=== PATIENT | female | born 1975 | race Caucasian/White ===

== ENCOUNTER → 2023-11-25 08:14 | Outpatient (REF) | payer OTHER, SELFPAY | LOC: WDC 08:14 | PROVIDERS: ATTENDING PHYSICIAN Surgery; FAMILY PHYSICIAN Student in an Organized Health Care Education/Training Program | DX: N64.4 Mastodynia (principal) | CPT/HCPCS: 76642 ==

== ENCOUNTER → 2024-02-17 06:19 | Day surgery (SDC) | payer OTHER, SELFPAY | LOC: GI 06:19 | PROVIDERS: ATTENDING PHYSICIAN Internal Medicine Gastroenterology | DX: Z12.11 Encounter for screening for malignant neoplasm of colon (principal); K57.30 Diverticulosis of large intestine without perforation or abscess without bleeding | CPT/HCPCS: G0121 ==

== ENCOUNTER → 2024-05-30 14:10 | Outpatient (REF) | payer OTHER, SELFPAY | LOC: HWWDC 14:10 | PROVIDERS: ATTENDING PHYSICIAN Obstetrics & Gynecology; FAMILY PHYSICIAN Family Medicine | DX: Z12.31 Encounter for screening mammogram for malignant neoplasm of breast (principal) | CPT/HCPCS: 77063; 77067 ==

== ENCOUNTER → 2024-06-22 07:49 | Outpatient (REF) | payer OTHER, SELFPAY ==
[2024-06-22 10:26] LABS: ALT (SGPT) 40 U/L (0-35); AST (SGOT) 35 U/L (14-36); Albumin 4.4 g/dl (3.5-5.0); Alkaline Phosphatase 94 U/L (38-126); Direct Bilirubin 0.2 mg/dl (0.0-0.4); Total Bilirubin 0.7 mg/dl (0.2-1.3); Total Protein 7.2 g/dl (6.3-8.2)
== END ==
LOC: HWLAB 07:49
PROVIDERS: ATTENDING PHYSICIAN Internal Medicine Gastroenterology; FAMILY PHYSICIAN Student in an Organized Health Care Education/Training Program
DX: K76.0 Fatty (change of) liver, not elsewhere classified (principal)
CPT/HCPCS: 36415; 80076

== ENCOUNTER → 2024-07-10 07:14 | Outpatient (REF) | payer OTHER, SELFPAY ==
[2024-07-10 10:45] LABS: Iron 89 ug/dl (37-170)
[2024-07-10 10:55] LABS: Percent Saturation 26 % (20-50); Total Iron Binding Capacity 333 ug/dl (265-497)
[2024-07-10 11:34] LABS: Hepatitis B Surface Antibody Negative; Hepatitis C Antibody Negative (Negative)
[2024-07-10 14:35] LABS: Hepatitis A Antibody, Total Negative (Negative)
[2024-07-11 12:46] LABS: tTG IgA Antibody 19.6 EU/ml (0-19); tTG IgG Antibody 13.5 EU/ml (0-19)
[2024-07-11 20:54] LABS: Ceruloplasmin 25 mg/dL (16-45)
[2024-07-12 03:02] LABS: F-Actin Antibody IgG 7 Units (0-19); Mitochondrial M2 Ab, IgG 12.3 Units (0.0-24.9)
[2024-07-12 06:50] LABS: IgA 245 mg/dl (70-400)
[2024-07-12 07:30] LABS: ANA, IgG Reflex to HEp-2 Detected (None Detected)
[2024-07-13 01:34] LABS: Endomysial IgA Antibody Titer <1:10 (<1:10)
== END ==
LOC: HWRAD 07:14
PROVIDERS: ATTENDING PHYSICIAN Internal Medicine Gastroenterology; FAMILY PHYSICIAN Student in an Organized Health Care Education/Training Program
DX: K21.9 Gastro-esophageal reflux disease without esophagitis (principal); R79.89 Other specified abnormal findings of blood chemistry
CPT/HCPCS: 36415; 76700; 82103; 82104; 82390; 82728; 82784; 83516; 83540; 83550; 86015; 86038; 86231; 86381; 86706; 86708; 86803

== ENCOUNTER → 2024-08-14 06:20 | Day surgery (SDC) | payer OTHER, SELFPAY | LOC: GI 06:20 | PROVIDERS: ATTENDING PHYSICIAN Internal Medicine Gastroenterology | DX: Z12.11 Encounter for screening for malignant neoplasm of colon (principal); K64.8 Other hemorrhoids; K57.30 Diverticulosis of large intestine without perforation or abscess without bleeding; R12 Heartburn; R13.10 Dysphagia, unspecified; K22.2 Esophageal obstruction; K44.9 Diaphragmatic hernia without obstruction or gangrene; K31.7 Polyp of stomach and duodenum; K22.89 Other specified disease of esophagus; D12.2 Benign neoplasm of ascending colon; K29.80 Duodenitis without bleeding; K20.80 Other esophagitis without bleeding | CPT/HCPCS: 45380; 43239; 88305 ==

== ENCOUNTER → 2024-12-03 07:22 | Outpatient (REF) | payer OTHER, SELFPAY | LOC: HWRAD 07:22 | PROVIDERS: ATTENDING PHYSICIAN Student in an Organized Health Care Education/Training Program | DX: Z00.00 Encounter for general adult medical examination without abnormal findings (principal); M25.511 Pain in right shoulder; R22.9 Localized swelling, mass and lump, unspecified | CPT/HCPCS: 73030; 73564; 73590 ==

== ENCOUNTER → 2025-06-06 14:55 | Outpatient (REF) | payer OTHER, SELFPAY | LOC: HWWDC 14:55 | PROVIDERS: ATTENDING PHYSICIAN Obstetrics & Gynecology; FAMILY PHYSICIAN Student in an Organized Health Care Education/Training Program | DX: Z12.31 Encounter for screening mammogram for malignant neoplasm of breast (principal) | CPT/HCPCS: 77063; 77067 ==